=== PATIENT | male | born 1940 | race Caucasian/White ===

== ENCOUNTER → 2024-03-02 14:15 | Outpatient (REF) | payer MEDICARE, OTHER, SELFPAY | LOC: RCS 14:15 | PROVIDERS: ATTENDING PHYSICIAN Internal Medicine Cardiovascular Disease; FAMILY PHYSICIAN Family Medicine | DX: I10 Essential (primary) hypertension (principal); I35.1 Nonrheumatic aortic (valve) insufficiency; E78.00 Pure hypercholesterolemia, unspecified; E78.2 Mixed hyperlipidemia; I51.7 Cardiomegaly | CPT/HCPCS: 93306 ==

== ENCOUNTER 2025-02-19 19:32 | Inpatient (IN) | payer MEDICARE, OTHER, SELFPAY ==
[2025-02-19] VITALS (17 sets, daily range): BP systolic 130–159; BP diastolic 56–87; BMI 26.3
[2025-02-19 15:19] LABS: % Basophils 0.2 % (0-2); % Eosinophils 0.5 % (0-6); % Immature Granulocytes 0.5 % (0-0.5); % Lymphocytes 14.1 % (20.5-51.1); % Monocytes 9.5 % (1.7-9.3); % Neutrophils 75.2 % (42.2-75.2); Absolute Lymphocytes 0.6 10^3/uL (1.2-3.4); Absolute Monocytes 0.4 10^3/uL (0.1-0.6); Absolute Neutrophils 3.2 10^3/uL (1.4-6.5); Hematocrit 15.2 % (39.0-52.0); Hemoglobin 4.1 g/dL (13.0-18.0); Mean Corpuscular Hgb 18.3 pg (27.0-31.0); Mean Corpuscular Volume 67.9 fL (80.0-94.0); Mean Platelet Volume 10.8 fL (7.4-10.4); Nucleated Red Blood Cells % 0 % (-); Platelet Count 163 10^3/uL (130-400); Red Blood Cell Count 2.24 10^6/uL (4.70-6.10); Red Cell Dist. Width 18.4 % (11.5-14.5); White Blood Cell Count 4.2 10^3/uL (4.8-10.8)
[2025-02-19 15:38] LABS: ALT (SGPT) 20 U/L (0-50); AST (SGOT) 17 U/L (17-59); Albumin 4.1 g/dl (3.5-5.0); Alkaline Phosphatase 42 U/L (38-126); Blood Urea Nitrogen 38 mg/dl (9-20); Calcium 9.3 mg/dl (8.4-10.2); Carbon Dioxide 21 mmol/L (22-30); Chloride 113 mmol/L (98-107); Glucose 110 mg/dl (70-99); Potassium 4.4 mmol/L (3.5-5.1); Sodium 142 mmol/L (135-145); Total Bilirubin 1.1 mg/dl (0.2-1.3); Total Protein 6.1 g/dl (6.3-8.2); eGFR 45.91
[2025-02-19 16:34] LABS: Anisocytosis 1+; Hypochromasia 2+; Microcytosis 2+; Normal RBC Morphology No; Ovalocytes 1+; Schistocytes 1+
--- NOTE | 2025-02-19 17:17 | ED.GENMED ---
History of Present Illness
General
Chief Complaint: Male Genito-Urinary Symptoms
Source: patient and spouse
Exam Limitations: none
Time Seen by Provider: 02/19/25 15:44
Nursing documentation reviewed up to this point in time: agreed with
History of Present Illness
History of Present Illness:
The patient is an 84-year-old male with a history of bladder cancer, not actively treated for the past three years, presenting with a week-long history of hematuria characterized by a red coloration of urine and blood clots. The patient reports
associated symptoms of fatigue and weakness. There is no reported pain. Hemoglobin levels are critically low at 4.1 g/dL, significantly below the normal range (~12 g/dL), indicating possible significant blood loss.
Past History
Past History
ED Past Medical History: HTN, Hypercholesterolemia and Other (Retention hypercholesterolemia, hemorrhoidectomy, pyloric stenosis)
ED Past Surgical History: None
Social History
Tobacco: Former smoker
Alcohol: Occasional
Drug: None
Personal:
Living: with family
Family History
Family History: Other (Other with diverticular disease)
Review of Systems
Review of Systems
Allergies reviewed?: Yes
All Other Systems: ROS reviewed and negative except as documented in HPI and ROS
Phy Exam
Physical Exam
Physical Exam:
GENERAL: Alert , in no apparent distress
EYE: pupils equal and reactive
NECK: Supple, no significant adenopathy.
ENT: o/p clr, mmm.
CARDIAC: Regular rate and rhythm .
LUNGS: Clear breath sounds bilaterally, no acute respiratory distress, no wheezes/rales/rhonchi
ABDOMEN: Soft, without focal tenderness, no r/g, no cvat
NEUROLOGICAL: Alert and oriented, no focal neuro deficits
SKIN: Warm and dry, skin intact.
MUSCULOSKELETAL: No edema, well perfused.
PSYCH: Normal and appropriate interaction.
Course
Orders/Labs/Results
Orders:
Orders
02/19/25 14:59
Type+Screen Urgent
Complete Blood Count/With Diff Urgent
Comprehensive Metabolic Panel Urgent
02/19/25 15:43
ABO2 Urgent
BBK Wristband Number:
Associate notified that ABO2 has been ordered: [id number]
Date: 02/19/25
Time: 15:09
Crime Victim Specialist ID: [id number]
02/19/25 15:53
* Blood Bank Products Urgent
Blood Bank Products: *Packed RBC Leuko(PRBC's)
Quantity: 2
Transfuse Today: Yes
Reason: Anemia
Abnormal Lab Results
02/19/25
14:59
WBC 4.2 L 10^3/uL
(4.8-10.8)
RBC 2.24 L 10^6/uL
(4.70-6.10)
Hgb 4.1 L* g/dL
(13.0-18.0)
Hct 15.2 L* %
(39.0-52.0)
MCV 67.9 L fL
(80.0-94.0)
MCH 18.3 L pg
(27.0-31.0)
MCHC 27.0 L g/dL
(33.0-37.0)
RDW 18.4 H %
(11.5-14.5)
MPV 10.8 H fL
(7.4-10.4)
Absolute Lymphs (auto) 0.6 L 10^3/uL
(1.2-3.4)
Lymphocytes % 14.1 L %
(20.5-51.1)
Monocytes % 9.5 H %
(1.7-9.3)
Chloride 113 H mmol/L
(98-107)
Carbon Dioxide 21 L mmol/L
(22-30)
BUN 38 H mg/dl
(9-20)
Creatinine 1.5 H mg/dL
(0.7-1.3)
Glucose 110 H mg/dl
(70-99)
Total Protein 6.1 L g/dl
(6.3-8.2)
Crossmatch IS Only See Detail
02/19/25 14:59
02/19/25 14:59
Vital Signs
Initial and Last Documented VS:
Initial Vital Signs
Temp Pulse Resp BP Pulse Ox
98.4 F 72 16 130/56 99
02/19/25 14:51 02/19/25 14:51 02/19/25 14:51 02/19/25 14:51 02/19/25 14:51
Last Documented Vital Signs
Temp Pulse Resp BP Pulse Ox
98.2 F 77 16 155/64 99
02/19/25 16:45 02/19/25 17:00 02/19/25 17:00 02/19/25 17:00 02/19/25 16:45
MDM/Problems Addressed
MDM/Problems Addressed:
The patient will be admitted to the hospital for transfusion of multiple units of blood and monitoring. Urology consultation is necessary to determine the source of bleeding. Consent for blood transfusion will be obtained from the patient.
Additional intravenous fluid administration is planned to increase blood volume.
*Pulse Oximetry
SaO2: 99
Oxygen Mode of Delivery: Room air
*Critical Care Note
Total Time (30-74mins, 75-104mins- exclusive of procedures): Not Applicable
ED Attending Note
-
Portions of this chart may have been created with voice recognition software.� Occasional wrong word or��sound alike� substitutions may have occurred due to the inherent limitations of voice recognition software.
Discharge Plan
Departure
Patient Disposition: Admit
Date of Disposition: 02/19/25
Time of Disposition: 17:18
Admit to: Telemetry
Admit to doctor: Ravin
Presentation/result/management discussed w/ accepting MD/DO: Hospitalist
Patient with high blood pressure during this ER visit?: No
Condition: Good
Covid-19: Not Applicable
Discharge Problem:
Anemia, Hematuria
Prescriptions:
No Action
mirtazapine 15 MG tablet
15 mg PO HS
3-In-1 Carb Control
2 cap PO BID
aspirin 81 MG tablet,delayed release (DR/EC)
81 mg PO HS
irbesartan 300 MG tablet
300 mg PO HS
rosuvastatin 10 MG tablet
10 mg PO HS
krill pur-xmpax-6-dha-epa 1 EACH capsule
1 cap PO QPM
Theragen Tablet
1 tab PO BID
amlodipine 2.5 mg Tablet
2.5 mg PO HS
acetaminophen [Tylenol Extra Strength] 500 mg Tablet
1,000 mg PO DAILYPRN PRN (Reason: mild pain)
temazepam 7.5 mg Capsule
7.5 mg PO HS
citalopram 20 mg Tablet
20 mg PO DAILY
acetylcysteine [NAC] 600 mg Capsule
600 mg PO DAILY
cholecalciferol (vitamin D3) 125 mcg (5,000 unit) Tablet
125 mcg PO QPM
melatonin 10 mg Tablet
10 mg PO HS
turmeric 400 mg Capsule
400 mg PO DAILY
Glucosamine Chondroitin
1 cap PO QPM
taurine
1 cap PO DAILY
Referrals:
Samuel Purdy MD [Family Provider, Family Practice]
Interventions
Interventions:
*Risk Screen - Suicide Last Done: 02/19/25 14:51
*General Assessment Last Done: 02/19/25 15:46
*Neglect/Abuse Screening Last Done: 02/19/25 14:51
*ED COVID-19 Vaccine History Last Done: 02/19/25 15:46
ED-Male Genitourinary Assessment Last Done: 02/19/25 15:48
Discharge Date and Time
Print Language: ARMENIAN
--- NOTE | 2025-02-19 18:09 | HPS.HSE ---
Family Physician
-
Family Physician: Samuel Purdy
Chief Complaint
-
Hematuria, weakness
History of Present Illness
84-year-old male with a past medical history of bladder cancer not treated for the last 3 years, chronic intermittent hematuria, BPH, pyloric stenosis, hypertension, and hyperlipidemia who presents with a 3-week history of hematuria,
lightheadedness, dizziness, and weakness. Patient reports that his hematuria has worsened in the last week, and his told him to come to the emergency room. He has been voiding bright red blood with blood clots. He denies bladder pain or
bladder spasms. He denies shortness of breath. No nausea, no vomiting. No chest pain. No black or bloody stools.
Medical History
Past Medical History
Past Medical History: Reports Other
Additional Past Medical History:
Bladder cancer
Bladder stones
Chronic hematuria
Benign prostatic hypertrophy
Pyloric stenosis
Essential hypertension
Hyperlipidemia
Insomnia
Anxiety
Past Surgical History: Reports Other
Additional Past Surgical History:
Hemorrhoidectomy
Complex laser cystolitholapaxy with stone extraction
Social History
Tobacco: Former Smoker
Alcohol: Occasional
Drug: None
Personal:
Living: With Family
Family History
Family History: Not pertinent
Allergies / Home Medications
Allergies reflects when Allergies were last updated in [facility].
Home Medications with original date entered in [facility]
Allergy/Medication List:
Allergies
Allergy/AdvReac Type Severity Reaction Status Date / Time
Penicillins Allergy Swelling Verified 07/20/22 02:25
Home Medications Table - record
�Medication �Instructions �Recorded �Confirmed
mirtazapine 15 mg tablet 15 mg PO HS 01/25/15 02/19/25
3-In-1 Carb Control 2 cap PO BID 12/28/19 02/19/25
aspirin 81 mg tablet,delayed 81 mg PO HS 12/28/19 02/19/25
release
irbesartan 300 mg tablet 300 mg PO HS 12/28/19 02/19/25
krill jro-cizqi-2-dha-epa 300 1 cap PO QPM 12/28/19 02/19/25
mg-90 mg (27 mg-45 mg) capsule
rosuvastatin 10 mg tablet 10 mg PO HS 12/28/19 02/19/25
Glucosamine Chondroitin 1 cap PO QPM 02/19/25 02/19/25
acetaminophen 500 mg tablet 1,000 mg PO DAILYPRN PRN mild pain 02/19/25 02/19/25
(Tylenol Extra Strength)
acetylcysteine 600 mg capsule (NAC) 600 mg PO DAILY 02/19/25 02/19/25
amlodipine 2.5 mg tablet 2.5 mg PO HS 02/19/25 02/19/25
cholecalciferol (vitamin D3) 125 125 mcg PO QPM 02/19/25 02/19/25
mcg (5,000 unit) tablet
citalopram 20 mg tablet 20 mg PO DAILY 02/19/25 02/19/25
melatonin 10 mg tablet 10 mg PO HS 02/19/25 02/19/25
taurine 1 cap PO DAILY 02/19/25 02/19/25
temazepam 7.5 mg capsule 7.5 mg PO HS 02/19/25 02/19/25
therapeutic multivitamin 1 tab PO BID 02/19/25 02/19/25
turmeric 400 mg capsule 400 mg PO DAILY 02/19/25 02/19/25
Review of Systems
-
A 12 point ROS was completed and negative except as noted: Yes
Physical Exam
Vital Signs
Vital Signs
Temp Pulse Resp BP Pulse Ox
98.5 F 64 15 149/61 100
02/19/25 18:08 02/19/25 18:08 02/19/25 18:08 02/19/25 18:08 02/19/25 18:08
Physical Exam
General: No Apparent Distress and Other (Pale appearing)
HEENT: NormoCephalic, Anicteric and Moist mucous membranes
Respiratory: Clear
Cardiac: S1/S2 and Regular Rhythm
GI: Soft, Non Tender, Non Distended and Normal Bowel Sounds
Musculoskeletal: No Clubbing, No Cyanosis and No Edema
Skin: Warm, Dry and Other (pale)
Neuro: Awake, Alert and Oriented
Psych: Calm
Laboratory Results
-
02/19/25 14:59
02/19/25 14:59
Laboratory Results
Total Bilirubin 1.1 mg/dl (0.2-1.3) 02/19/25 14:59
AST 17 U/L (17-59) 02/19/25 14:59
ALT 20 U/L (0-50) 02/19/25 14:59
Alkaline Phosphatase 42 U/L (38-126) 02/19/25 14:59
Impression/Plan
-
HPI: 84-year-old male with a past medical history of bladder cancer not treated for the last 3 years, chronic intermittent hematuria, BPH, pyloric stenosis, hypertension, and hyperlipidemia who presents with a 3-week history of hematuria,
lightheadedness, dizziness, and weakness. Patient reports that his hematuria has worsened in the last week, and his told him to come to the emergency room. He has been voiding bright red blood with blood clots. He denies bladder pain or
bladder spasms. He denies shortness of breath. No nausea, no vomiting. No chest pain. No black or bloody stools.
#Bladder cancer not currently on treatment
#Acute on chronic hematuria
Consult urology, insert Armendariz, likely will need CBI
Check CT abdomen and pelvis with IV contrast
#Acute blood loss anemia
#Symptomatic anemia
Hemoglobin 4.3 today, 2 units of packed red blood cells have been ordered
Will order third unit
Trend hemoglobin
#Essential hypertension
Continue amlodipine, irbesartan
#Hyperlipidemia
Continue statin
#Insomnia
#Anxiety
Continue mirtazapine, temazepam, citalopram, melatonin
DVT prophylaxis�SCD secondary to hematuria
Full code
Total time spent to see the patient on the floor, examine the patient, review data and lab results, discuss treatment plan with patient, nursing staff around 70 minutes.
--- NOTE | 2025-02-19 18:58 | W.PN.URO.CBU ---
Today's Communication / Plan
-
start [address] and upon ibserttin try and clear any clots once free of clots then run cbi
Assessment / Plan
-
hematuria anemia of acute blood loss likely bladder cancer need to resuscitate for anemia then cbi to clear clots then ct scan and pending results of ct scan try and treat underling disease probably bladder cancer
Diagnosis
-
Date of Service: February 19, 2025
-
Patient Diagnosis:h.o bladder cancer now 3 weeks gross hematuria painless hgb 4
Post Op Day:
Subjective
-
weak feels like bladder emtied urine pink
Objective
-
Vital Signs
Temp Pulse Resp BP Pulse Ox
98.3 F 64 19 159/71 99
02/19/25 18:24 02/19/25 18:24 02/19/25 18:24 02/19/25 18:24 02/19/25 18:24
Intake and Output
02/18/25 02/19/25 02/20/25
06:59 06:59 06:59
Intake Total 250 / 250
Balance 250 / 250
Intake:
Blood Product Amount Infused ( 250 / 250
mL)
Packed Rbc Leukoreduced Unit 250 / 250
[id number]
Packed Rbc Leukoreduced Unit 0 / 0
[id number]
Laboratory Results
02/19/25 14:59
02/19/25 14:59
Review of Systems
-
Constitutional: Fatigue
: Bleeding and Dark Urine
Physical Exam
-
General - well developed, well nourished, no acute distress
Chest - clear bilaterally
Abdomen - soft, non-tender, positive bowel sounds, no CVAT, no incisional pain or distention
Genitalia - normal
Rectal - normal
Skin - warm & dry with no rash
Neuro - AOx3, no motor deficits
Extremities - no clubbing, no cyanosis, no edema
Incision - clean, dry
Dressing - clean, dry, intact
Counseling
-
cbi hand irigate transfuse
Care Review
Data Reviewed
Discussed with: Hospitalist and Nursing
[2025-02-19] MEDS: NORVASC 2.5 MG PO (21:44)
[2025-02-19] MEDS: AVAPRO 300 MG PO (21:44)
[2025-02-19] MEDS: CRESTOR 10 MG PO (21:44)
[2025-02-19] MEDS: REMERON 15 MG PO (21:45)
[2025-02-19] MEDS: MELATONIN 10 MG PO (21:48)
[2025-02-19] MEDS: RESTORIL 7.5 MG PO (23:20)
[2025-02-20] VITALS (7 sets, daily range): BP systolic 125–148; BP diastolic 53–70
[2025-02-20 03:13] LABS: Hematocrit 23.4 % (39.0-52.0); Mean Corp Hgb Conc. 29.9 g/dL (33.0-37.0); Mean Corpuscular Hgb 21.9 pg (27.0-31.0); Mean Corpuscular Volume 73.4 fL (80.0-94.0); Mean Platelet Volume 10.9 fL (7.4-10.4); Platelet Count 143 10^3/uL (130-400); Red Blood Cell Count 3.19 10^6/uL (4.70-6.10); Red Cell Dist. Width 22.1 % (11.5-14.5); White Blood Cell Count 5.5 10^3/uL (4.8-10.8)
[2025-02-20 03:38] LABS: Blood Urea Nitrogen 34 mg/dl (9-20); Calcium 8.7 mg/dl (8.4-10.2); Carbon Dioxide 21 mmol/L (22-30); Chloride 113 mmol/L (98-107); Estimated Creatinine Clearance 31 ml/min; Glucose 127 mg/dl (70-99); Magnesium 2.3 mg/dl (1.6-2.3); Potassium 4.5 mmol/L (3.5-5.1); Sodium 141 mmol/L (135-145); eGFR 45.91
[2025-02-20 06:27] LABS: Hematocrit 22.2 % (39.0-52.0)
--- NOTE | 2025-02-20 07:00 | W.PN.HOSP.TC ---
Today's Communication/Plan
-
transfuse 1PRBC for goal Hgb 8
npo after midnight for OR tomorrow with Urology
IVF hydration when NPO
cont Armendariz CBI as per Urology
Assessment / Plan
Assessment / Plan
Physical Exam
General: No Apparent Distress, appears comfortable at this time
HEENT: NormoCephalic, Anicteric and Moist mucous membranes
Respiratory: Clear
Cardiac: S1/S2 and Regular Rhythm
GI: Soft, Non Tender, Non Distended and Normal Bowel Sounds
Musculoskeletal: No Clubbing, No Cyanosis and No Edema
Skin: Warm, Dry
Neuro: AOx3 conversant coherent
Psych: Calm
84M hx bladder cancer, chronic intermittent hematuria, BPH, pyloric stenosis, hypertension, and hyperlipidemia who presents with a 3 wk hx hematuria, lightheadedness, dizziness, and weakness. Patient reported his hematuria worsened in the last
week, and his told him to come to the emergency room. He has been voiding bright red blood with blood clots. He denied bladder pain or bladder spasms. He denied shortness of breath. No nausea, no vomiting. No chest pain. No black or
bloody stools.
#Bladder cancer not currently on treatment
#Acute on chronic hematuria
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
Consult urology appreciated, Armendariz inserted and CBI continued, planned for OR tomorrow
Cardiology pre-op risk assessment appreciated, low intermediate risk not prohibitive, ok to proceed to OR tomorrow
EKG appreciated NSR RBBB possible inferior infarct age indeterminate, patient chest pain free
#Acute blood loss anemia
#Symptomatic anemia
Hemoglobin 4.3 responded well to 3 units PRBC w/ subsequent repeat Hgb 7.0
4th unit ordered today 02/20
transfusing for goal 8 given concerns active bleeding and plan for OR tomorrow
#Essential hypertension
Continue amlodipine, irbesartan
#Hyperlipidemia
Continue statin
#Insomnia
#Anxiety
Continue mirtazapine, temazepam, citalopram, melatonin
DVT prophylaxis�SCD secondary to hematuria
Full code
I spent a total of 45 minutes with the patient or on the floor. More than 50% of this time involved counseling and coordination of care.
Anticipated Discharge: > 48 hours
Subjective/Interval History
-
Date of Service: February 20, 2025
No acute distress resting comfortably in bed. Overall reports feeling well. Denies new acute issues at this time including pain. on cbi with light punch colored urine in Armendariz.
Objective Data
-
Labs:
Laboratory Results
02/20/25 02/20/25 02/20/25
03:03 03:03 03:03
WBC 5.5
Hgb 7.0 L D Cancelled
Hct 23.4 L Cancelled
Plt Count 143
Sodium 141
Potassium 4.5
Chloride 113 H
Carbon Dioxide 21 L
BUN 34 H
Creatinine 1.5 H
Glucose 127 H
Calcium 8.7
02/20/25
06:19
WBC
Hgb 7.0 L
Hct 22.2 L
Plt Count
Sodium
Potassium
Chloride
Carbon Dioxide
BUN
Creatinine
Glucose
Calcium
Vital Signs:
Vital Signs
Temp Pulse Resp BP Pulse Ox
98.0 F 64 16 147/64 99
02/20/25 03:23 02/20/25 03:23 02/20/25 03:23 02/20/25 03:23 02/20/25 03:23
I&O
02/19/25 02/20/25 02/21/25
06:59 06:59 06:59
Intake Total 990 / 990
Output Total 1150 / 1150
Balance -160 / -160
[2025-02-20] MEDS: CELEXA 20 MG PO (08:43)
--- NOTE | 2025-02-20 11:45 | W.PN.URO.CBU ---
Today's Communication / Plan
-
for op room sun am
Assessment / Plan
-
hematuria anemia of acute blood loss likely bladder cancer need to resuscitate for anemia then cbi to clear clots then ct scan and pending results of ct scan try and treat underling disease probably bladder cancer for op room if stable saturday
aware lg volime tumor and may require more than 1 procerdure
Diagnosis
-
Date of Service: February 20, 2025
-
Patient Diagnosis:
Post Op Day:
Patient Diagnosis:h.o bladder cancer now 3 weeks gross hematuria painless hgb 4 ct scan renveals multiple tumors
Post Op Day:
Subjective
-
ledss henaturi a feels stronger
Objective
-
Vital Signs
Temp Pulse Resp BP Pulse Ox
98 F 63 16 146/65 98
02/20/25 07:43 02/20/25 07:43 02/20/25 07:43 02/20/25 07:43 02/20/25 07:43
Intake and Output
02/19/25 02/20/25 02/21/25
06:59 06:59 06:59
Intake Total 990 / 990
Output Total 1150 / 1150
Balance -160 / -160
Intake:
Oral fluids 240 / 240
Blood Product Amount Infused ( 750 / 750
mL)
Packed Rbc Leukoreduced Unit 250 / 250
[id number]
Packed Rbc Leukoreduced Unit 250 / 250
[id number]
Packed Rbc Leukoreduced Unit 250 / 250
[id number]
Output:
True Urine Output from CBI 1150 / 1150
Laboratory Results
02/20/25 03:03
Review of Systems
-
: Bleeding
Physical Exam
-
General - well developed, well nourished, no acute distress
Chest - clear bilaterally
Abdomen - soft, non-tender, positive bowel sounds, no CVAT, no incisional pain or distention
Genitalia - normal
Rectal - normal
Skin - warm & dry with no rash
Neuro - AOx3, no motor deficits
Extremities - no clubbing, no cyanosis, no edema
Incision - clean, dry
Dressing - clean, dry, intact
Care Review
Data Reviewed
Discussed with: Hospitalist and Nursing
CT Scan: Image Pers Reviewed
[2025-02-20 11:46] LABS: Hematocrit 22.7 % (39.0-52.0)
--- NOTE | 2025-02-20 12:46 | CON.CAR ---
Consultation
Consultation Request
Date/Time Consultation Requested: February 20 2025 12:30 pm
Date/Time Consultation Performed: February 20 2025 2:00 pm
Requesting Provider: hospitalist
Performing Provider: Primo Caballero
Reason for Consultation: preop risk stratification
Medical History
-
Chief Complaint: Blood in urine
History of Present Illness:
84-year-old male with past medical history of hyperlipidemia, hypertension, bladder cancer, nephrolithiasis, hematuria who presented with symptomatic anemia secondary to hematuria. He tells me that over the last week or so he had becoming more more
symptomatic with shortness of breath and weakness. He also had more persistent hematuria. When he presented to the emergency room his hemoglobin was 4. Otherwise, from a cardiovascular standpoint besides for the symptomatic anemia he has no other
symptoms of ischemia, heart failure, or arrhythmia. He had an echocardiogram about a year ago which did not show any significant valve disease and a normal ejection fraction. He is easily able to exert himself to greater than 4 METS. Overall, we
discussed how he was low to him intermediate risk for this upcoming bladder procedure.
Past Medical History
Past Medical History: Other (Bladder cancer Bladder stones Chronic hematuria Benign prostatic hypertrophy Pyloric stenosis Essential hypertension Hyperlipidemia Insomnia Anxiety hypertension)
Past Surgical History: Other (Hemorrhoidectomy Complex laser cystolitholapaxy with stone extraction)
Social History
Tobacco: Former Smoker
Alcohol: Occasional
Drug: None
Personal:
Living: With Family
Employment: Employed
Family History
Family History: Reviewed & Not Pertinent
Allergies / Home Medications
Allergy/AdvReac Type Severity Reaction Status Date / Time
Penicillins Allergy Swelling Verified 07/20/22 02:25
�Medication �Instructions �Recorded �Confirmed �Type
mirtazapine 15 mg tablet 15 mg PO HS 01/25/15 02/19/25 History
3-In-1 Carb Control 2 cap PO BID 12/28/19 02/19/25 History
aspirin 81 mg tablet,delayed 81 mg PO HS 12/28/19 02/19/25 History
release
irbesartan 300 mg tablet 300 mg PO HS 12/28/19 02/19/25 History
krill qck-ggkez-3-dha-epa 300 1 cap PO QPM 12/28/19 02/19/25 History
mg-90 mg (27 mg-45 mg) capsule
rosuvastatin 10 mg tablet 10 mg PO HS 12/28/19 02/19/25 History
Glucosamine Chondroitin 1 cap PO QPM 02/19/25 02/19/25 History
acetaminophen 500 mg tablet 1,000 mg PO DAILYPRN PRN mild pain 02/19/25 02/19/25 History
(Tylenol Extra Strength)
acetylcysteine 600 mg capsule (NAC) 600 mg PO DAILY 02/19/25 02/19/25 History
amlodipine 2.5 mg tablet 2.5 mg PO HS 02/19/25 02/19/25 History
cholecalciferol (vitamin D3) 125 125 mcg PO QPM 02/19/25 02/19/25 History
mcg (5,000 unit) tablet
citalopram 20 mg tablet 20 mg PO DAILY 02/19/25 02/19/25 History
melatonin 10 mg tablet 10 mg PO HS 02/19/25 02/19/25 History
taurine 1 cap PO DAILY 02/19/25 02/19/25 History
temazepam 7.5 mg capsule 7.5 mg PO HS 02/19/25 02/19/25 History
therapeutic multivitamin 1 tab PO BID 02/19/25 02/19/25 History
turmeric 400 mg capsule 400 mg PO DAILY 02/19/25 02/19/25 History
Review of Systems
-
All other systems: Negative unless noted
Physical Exam
Vital Signs
Temp Pulse Resp BP Pulse Ox
98 F 63 16 146/65 98
02/20/25 07:43 02/20/25 07:43 02/20/25 07:43 02/20/25 07:43 02/20/25 07:43
Lab Results
02/20/25 11:32
02/20/25 03:03
Physical Exam
General: Well Developed, Well Nourished and No Apparent Distress
HEENT: Normocephalic
Respiratory: Clear and Non Labored Respirations
Cardiac: S1/S2 and Regular Rhythm
GI: Soft
Musculoskeletal: No Clubbing, No Cyanosis and No Edema
Skin: Warm and Dry
Neuro: AO x 3
Psych: Calm
Impression / Plan
-
A/P: 84-year-old male with past medical history of hyperlipidemia, hypertension, bladder cancer, nephrolithiasis, hematuria who presented with symptomatic anemia secondary to hematuria. We are consulted for preop cardiovascular exam.
Preop cardiovascular risk assessment
- Patient has no cardiovascular limiting symptoms and is easily able to exert himself to greater than 4 METS. He is low to intermediate risk for his upcoming urologic procedure tomorrow. He needs no further testing or medications. I did put in
for an EKG as he has not gotten one this hospitalization. Otherwise, he needs no further testing.
hematuria likely secondary to bladder cancer
- Per urology OR for tomorrow
Hyperlipidemia
- Continue statin
Hypertension
- Continue home meds
Mild AI
Data Reviewed
-
EKG: Tracing Personally Visualized and interpreted (sr)
Medical Tests (Nuc Med, Echo etc): Image Personally Visualized and interpreted
Labs: Labs Reviewed by me
--- NOTE | 2025-02-20 13:38 | CM ---
Patient seen bedside, initial assessment completed. Patient is a 84-year-old male with a past medical history of bladder cancer not treated for the last 3 years, chronic intermittent hematuria, BPH, pyloric stenosis, hypertension, and hyperlipidemia
who presents with a 3-week history of hematuria, lightheadedness, dizziness, and weakness.
Patient resides w/ spouse in a 2S, 3 steps to enter. Independent w/ amb and ADLs, no DME. No SNF/HC hx reported.
Address, points of contact and insurance verified
PCP: Samuel Purdy
Pharmacy: [facility]
Plan: CM will cont to follow for d/c planning
[2025-02-20] MEDS: VITAMIN D3 (cholecalciferol) 125 MCG PO (18:30)
[2025-02-20] MEDS: THERAGRAN 1 TABLET PO (20:18)
[2025-02-20 20:26] LABS: Hematocrit 25.3 % (39.0-52.0)
[2025-02-20] MEDS: RESTORIL 7.5 MG PO (21:00)
[2025-02-20] MEDS: NORVASC 2.5 MG PO (21:00)
[2025-02-20] MEDS: CRESTOR 10 MG PO (21:00)
[2025-02-20] MEDS: REMERON 15 MG PO (21:00)
[2025-02-20] MEDS: MELATONIN 10 MG PO (21:00)
[2025-02-20] MEDS: AVAPRO 300 MG PO (22:10)
[2025-02-20] MEDS: NSS 1000 IV (23:50)
[2025-02-21] VITALS (13 sets, daily range): BP systolic 109–142; BP diastolic 53–69
--- NOTE | 2025-02-21 07:03 | W.PN.HOSP.TC ---
Today's Communication/Plan
-
monitor H&H, transfusion goal 8
cont IVF, ok to dc if tolerating diet/exhibiting good oral intake
pain control
cont Armendariz CBI as per urology
Assessment / Plan
Assessment / Plan
Physical Exam
General: No Apparent Distress, appears comfortable at this time
HEENT: NormoCephalic, Anicteric and Moist mucous membranes
Respiratory: Clear
Cardiac: S1/S2 and Regular Rhythm
GI: Soft, Non Tender, Non Distended and Normal Bowel Sounds
: Armendariz CBI in placed, punch colored urine
Musculoskeletal: No Clubbing, No Cyanosis and No Edema
Skin: Warm, Dry
Neuro: Lethargic but arousable and oriented x3 conversant coherent
Psych: Calm
84M hx bladder cancer, chronic intermittent hematuria, BPH, pyloric stenosis, hypertension, and hyperlipidemia who presents with a 3 wk hx hematuria, lightheadedness, dizziness, and weakness. Patient reported his hematuria worsened in the last
week, and his told him to come to the emergency room. He has been voiding bright red blood with blood clots. He denied bladder pain or bladder spasms. He denied shortness of breath. No nausea, no vomiting. No chest pain. No black or
bloody stools.
#Bladder cancer not currently on treatment
#Acute on chronic hematuria
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
Cardiology pre-op risk assessment appreciated, low intermediate risk not prohibitive
EKG appreciated NSR RBBB possible inferior infarct age indeterminate, patient chest pain free
Consult urology appreciated, Armendariz inserted and CBI continued, underwent TURBT and Clot evacuation 02/21/25 received prophylactic IV Levofloxacin
IVF support while npo for procedure, cont IVF support for now, ok to dc if tolerating diet/exhibiting good oral intake
cont hold home ASA as per Urology
#Acute blood loss anemia
#Symptomatic anemia
#possible mild ADAM vs CKD III
Hemoglobin 4.3 responded well to 3 units PRBC w/ subsequent repeat Hgb 7.0
transfused 4th unit 02/20 for goal 8 given concerns active bleeding and plans for OR
Remains at goal post-procedure, cont monitor H&H with transfusion goal 8 as above.
Initial Cr 1.5 since trended down to 1.3, cont to monitor renal function
#Essential hypertension
Continue amlodipine, irbesartan
#Hyperlipidemia
Continue statin
#Insomnia
#Anxiety
Continue mirtazapine, temazepam, citalopram, melatonin
DVT prophylaxis�SCD
Full code
discussed with patient and patient's Tamera
I spent a total of 45 minutes with the patient or on the floor. More than 50% of this time involved counseling and coordination of care.
Anticipated Discharge: 24 - 48 hours
Subjective/Interval History
-
Date of Service: February 21, 2025
No acute distress, resting comfortably in bed, reports overall feeling well, no significant pain post-procedure with urology
Objective Data
-
Labs:
Laboratory Results
02/20/25 02/21/25
20: 06:00
WBC Pending
Hgb 8.0 L Pending
Hct 25.3 L Pending
Plt Count Pending
Sodium Pending
Potassium Pending
Chloride Pending
Carbon Dioxide Pending
BUN Pending
Creatinine Pending
Glucose Pending
Calcium Pending
Vital Signs:
Vital Signs
Temp Pulse Resp BP Pulse Ox
98.1 F 66 16 125/53 95
02/20/25 23:04 02/20/25 23:04 02/20/25 23:04 02/20/25 23:04 02/20/25 23:04
I&O
02/20/25 02/21/25 02/22/25
06:59 06:59 06:59
Intake Total 990 / 990 850 / 850
Output Total 1150 / 1150 3900 / 3900
Balance -160 / -160 -3050 / -3050
[2025-02-21 08:12] LABS: Hematocrit 26.3 % (39.0-52.0); Hemoglobin 8.1 g/dL (13.0-18.0); Mean Corp Hgb Conc. 30.8 g/dL (33.0-37.0); Mean Corpuscular Hgb 22.9 pg (27.0-31.0); Mean Corpuscular Volume 74.3 fL (80.0-94.0); Platelet Count 141 10^3/uL (130-400); Red Blood Cell Count 3.54 10^6/uL (4.70-6.10); Red Cell Dist. Width 21.5 % (11.5-14.5); White Blood Cell Count 6.4 10^3/uL (4.8-10.8)
[2025-02-21 08:16] LABS: Blood Urea Nitrogen 23 mg/dl (9-20); Calcium 8.6 mg/dl (8.4-10.2); Carbon Dioxide 20 mmol/L (22-30); Chloride 115 mmol/L (98-107); Estimated Creatinine Clearance 36 ml/min; Glucose 97 mg/dl (70-99); Phosphorus 3.5 mg/dl (2.5-4.5); Potassium 3.8 mmol/L (3.5-5.1); Sodium 141 mmol/L (135-145); eGFR 54.51
--- NOTE | 2025-02-21 10:30 | W.SUR.POST ---
Surgical Immediate Post Op
Note
Pre Op Diagnosis: hematuria acute anemia of blood loss h/ bladder cancer
Post Op Diagnosis: bladder cancer clot retention
Procedure Performedturbt 10 cm with evacuation of clot:
Primary Surgeon: trey
Secondary Surgeons:
Anesthesia: dr woods [facility]
Estimated Blood Loss: 35cc
Fluids: nn
Drains/Shunts: [address] balloon
Specimens/Cultures:
Doppler/Duplex/Angio (Y/N):
Complications: -0
Operative Findings:
muliple lg tumors inclding at bladder neck / prostate clot retention
[2025-02-21] MEDS: ZOFRAN 4 MG IV (10:39)
[2025-02-21 12:53] LABS: Glucose - Point of Care 190 mg/dl (70-99)
--- NOTE | 2025-02-21 12:58 | PTCARENOTE ---
The patient complain light headache, CBI intact and patent with bloody urine, Dr. Sommer at bedside, stat H&H was dori, VSS monitored, BS is 190 .Waiting for result at this time.
[2025-02-21] MEDS: CELEXA PO (13:00)
[2025-02-21] MEDS: THERAGRAN PO (13:01)
[2025-02-21] MEDS: NSS 1000 IV (13:01)
[2025-02-21 13:05] LABS: Hematocrit 25.9 % (39.0-52.0); Hemoglobin 8.2 g/dL (13.0-18.0)
[2025-02-21] MEDS: TRANEXAMIC ACID 100 IV (13:11)
[2025-02-21] MEDS: VITAMIN D3 (cholecalciferol) PO (16:56)
[2025-02-21] MEDS: MIRALAX 17 GRAMS PO (20:09)
[2025-02-21] MEDS: THERAGRAN 1 TABLET PO (20:09)
[2025-02-21 20:34] LABS: Hematocrit 25.7 % (39.0-52.0); Hemoglobin 7.9 g/dL (13.0-18.0)
--- NOTE | 2025-02-21 21:30 | PTCARENOTE ---
Pt's Hgb result from 1999 was 7.9; goal of hgb > 8. Dr. Burk called for update, this RN notified him of hgb result and that pt's urine is still bloody but no clots have been noted in his catheter tonight. OTBIAS Hammond notified of hgb result and
ordered 1 unit PRBCs which were transfused by this RN. No adverse reaction to blood transfusion noted, VSS throughout transfusion. Hgb due to be rechecked at 0600 this AM.
[2025-02-21] MEDS: RESTORIL 7.5 MG PO (22:36)
[2025-02-21] MEDS: CRESTOR 10 MG PO (22:36)
[2025-02-21] MEDS: MELATONIN 10 MG PO (22:36)
[2025-02-21] MEDS: AVAPRO 300 MG PO (22:36)
[2025-02-21] MEDS: NORVASC 2.5 MG PO (22:37)
[2025-02-21] MEDS: REMERON 15 MG PO (22:37)
[2025-02-22] VITALS (10 sets, daily range): BP systolic 112–159; BP diastolic 49–68
[2025-02-22] MEDS: NSS 1000 IV (03:57)
--- NOTE | 2025-02-22 07:26 | W.PN.HOSP.TC ---
Today's Communication/Plan
-
cont Armendariz CBI as per urology
transfusion goal Hgb 8
cont prophylactic abx
monitor H&H and renal function
Assessment / Plan
Assessment / Plan
Physical Exam
General: No Apparent Distress, appears comfortable at this time
HEENT: NormoCephalic, Anicteric and Moist mucous membranes
Respiratory: Clear
Cardiac: S1/S2 and Regular Rhythm
GI: Soft, Non Tender, Non Distended and Normal Bowel Sounds
: Armendariz CBI in placed, punch colored urine
Musculoskeletal: No Clubbing, No Cyanosis and No Edema
Skin: Warm, Dry
Neuro: AO x3 conversant coherent
Psych: Calm
84M hx bladder cancer, chronic intermittent hematuria, BPH, pyloric stenosis, hypertension, and hyperlipidemia who presents with a 3 wk hx hematuria, lightheadedness, dizziness, and weakness. Patient reported his hematuria worsened in the last
week, and his told him to come to the emergency room. He has been voiding bright red blood with blood clots. He denied bladder pain or bladder spasms. He denied shortness of breath. No nausea, no vomiting. No chest pain. No black or
bloody stools.
#Bladder cancer not currently on treatment
#Acute on chronic hematuria
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
Cardiology pre-op risk assessment appreciated, low intermediate risk not prohibitive
EKG appreciated NSR RBBB possible inferior infarct age indeterminate, patient chest pain free
Consult urology appreciated, Armendariz inserted and CBI continued, underwent TURBT and Clot evacuation 02/21/25 received prophylactic IV Levofloxacin
prophylactic abx continued w/ Keflex
IVF support while npo for procedure, cont IVF support for now, ok to dc if tolerating diet/exhibiting good oral intake
cont hold home ASA as per Urology
#Acute blood loss anemia
#Symptomatic anemia
#possible mild ADAM vs CKD III
received total 6U PRBC over the course of hospitalization for goal Hgb 8
Cr consistently 1.5, cont monitoring
#Hypocalcemia
likely side effect multiple transfusions
Vit D wnl
scheduled PO calcium supplementations started
monitor and replete calcium as necessary
#Essential hypertension
Continue amlodipine, irbesartan
#Hyperlipidemia
Continue statin
#Insomnia
#Anxiety
Continue mirtazapine, temazepam, citalopram, melatonin
DVT prophylaxis�SCD
Full code
I spent a total of 45 minutes with the patient or on the floor. More than 50% of this time involved counseling and coordination of care.
Anticipated Discharge: 24 - 48 hours
Subjective/Interval History
-
Date of Service: February 22, 2025
No acute distress, resting comfortably in bed. Overall reports feeling well. CBI continues with ostensible hematuria noted
Objective Data
-
Labs:
Laboratory Results
02/21/25 02/22/25 02/22/25
20:28 06:00 12:00
WBC Pending
Hgb 7.9 L Pending Pending
Hct 25.7 L Pending Pending
Plt Count Pending
Sodium Pending
Potassium Pending
Chloride Pending
Carbon Dioxide Pending
BUN Pending
Creatinine Pending
Glucose Pending
Calcium Pending
Vital Signs:
Vital Signs
Temp Pulse Resp BP Pulse Ox
98.2 F 76 16 127/65 95
02/22/25 02:49 02/22/25 02:49 02/22/25 02:49 02/22/25 02:49 02/22/25 02:49
I&O
02/21/25 02/22/25 02/23/25
06:59 06:59 06:59
Intake Total 850 / 850 1780 / 1780
Output Total 3900 / 3900 500 / 500 3600 / 3600
Balance -3050 / -3050 1280 / 1280 -3600 / -3600
[2025-02-22] MEDS: KEFLEX 500 MG PO ×2 (07:56→20:18)
[2025-02-22] MEDS: CELEXA 20 MG PO (07:56)
[2025-02-22] MEDS: THERAGRAN 1 TABLET PO ×2 (07:56→20:18)
[2025-02-22 08:05] LABS: Hematocrit 24.7 % (39.0-52.0); Hemoglobin 7.8 g/dL (13.0-18.0); Mean Corp Hgb Conc. 31.6 g/dL (33.0-37.0); Mean Corpuscular Hgb 24.2 pg (27.0-31.0); Mean Corpuscular Volume 76.7 fL (80.0-94.0); Platelet Count 134 10^3/uL (130-400); Red Blood Cell Count 3.22 10^6/uL (4.70-6.10); Red Cell Dist. Width 21.6 % (11.5-14.5); White Blood Cell Count 10.4 10^3/uL (4.8-10.8)
[2025-02-22 08:46] LABS: Blood Urea Nitrogen 25 mg/dl (9-20); Calcium 7.7 mg/dl (8.4-10.2); Carbon Dioxide 21 mmol/L (22-30); Chloride 113 mmol/L (98-107); Estimated Creatinine Clearance 31 ml/min; Glucose 109 mg/dl (70-99); Phosphorus 3.7 mg/dl (2.5-4.5); Potassium 4.2 mmol/L (3.5-5.1); Sodium 139 mmol/L (135-145); eGFR 45.91
--- NOTE | 2025-02-22 09:52 | PTCARENOTE ---
Assumed care of pt from previous nurse. Pt denies pain. Pt CBI running, irrigated x's one for pressure, clots evacuated, running without issue. Pt call knight is within reach, pt rings carole. will cont to monitor.
[2025-02-22] MEDS: CALCIUM GLUCONATE 100 IV (10:49)
[2025-02-22 11:29] LABS: Vitamin D, 25-OH*** 67.7 ng/mL (30-80)
[2025-02-22] MEDS: OSCAL CAL 500 500 MG PO ×2 (12:44→20:18)
--- NOTE | 2025-02-22 13:45 | CM ---
Chart reviewed and patient would benefit from PT/OT to assist with discharge planning needs. VN needs.
Plan; await updated progress notes on patient.
--- NOTE | 2025-02-22 16:37 | W.PN.URO.CBU ---
Today's Communication / Plan
-
continue present care teach t about fleming care and leg bag as awill go home with fleming
Assessment / Plan
-
hematuria anemia of acute blood loss likely bladder cancer s?p turbt await payth but sig slowed down bleeding pt yeny go home with fleming for nw no plan to go back to op ro for fulgeration unles rebleeds but so far hgb/ hct stabe x 48
hours but needs to keep cbi plan to kelly ff cbi in am and see how pt progresses
Diagnosis
-
Date of Service: February 22, 2025
-
Patient Diagnosis:anemia of acute blood loss due to bladder cancer
Post Op Day:
Patient Diagnosis:
Post Op Day:
Patient Diagnosis:h.o bladder cancer now 3 weeks gross hematuria painless hgb 4 ct scan renveals multiple tumors
Post Op Day:
Subjective
-
feeling better
Objective
-
Vital Signs
Temp Pulse Resp BP Pulse Ox
98.4 F 78 16 125/63 96
02/22/25 15:32 02/22/25 15:32 02/22/25 15:32 02/22/25 15:32 02/22/25 15:32
Intake and Output
02/21/25 02/22/25 02/23/25
06:59 06:59 06:59
Intake Total 850 / 850 1780 / 1780 670 / 670
Output Total 3900 / 3900 500 / 500 3600 / 3600
Balance -3050 / -3050 1280 / 1280 -2930 / -2930
Intake:
Oral fluids 600 / 600 480 / 480 420 / 420
IV fluids (Total) 800 / 800
Blood products 250 / 250
Blood Product Amount Infused ( 250 / 250 250 / 250 250 / 250
mL)
Packed Rbc Leukoreduced Unit 250 / 250
[id number]
Packed Rbc Leukoreduced Unit 250 / 250
[id number]
Packed Rbc Leukoreduced Unit 250 / 250
[id number]
Output:
True Urine Output from CBI 3900 / 3900 500 / 500 3600 / 3600
Laboratory Results
02/22/25 07:29
Review of Systems
-
: Bleeding
Physical Exam
-
General - well developed, well nourished, no acute distress
Chest - clear bilaterally
Abdomen - soft, non-tender, positive bowel sounds, no CVAT, no incisional pain or distention
Genitalia - normal
Rectal - normal
Skin - warm & dry with no rash
Neuro - AOx3, no motor deficits
Extremities - no clubbing, no cyanosis, no edema
Incision - clean, dry
Dressing - clean, dry, intact
Care Review
Data Reviewed
Discussed with: Hospitalist, Internal Medicine and Family
[2025-02-22] MEDS: MIRALAX 17 GRAMS PO (16:51)
[2025-02-22] MEDS: NSS IV (17:14)
[2025-02-22] MEDS: VITAMIN D3 (cholecalciferol) 125 MCG PO (17:33)
[2025-02-22 18:32] LABS: Hematocrit 29.6 % (39.0-52.0); Hemoglobin 9.5 g/dL (13.0-18.0)
[2025-02-22] MEDS: MELATONIN 10 MG PO (23:07)
[2025-02-22] MEDS: RESTORIL 7.5 MG PO (23:07)
[2025-02-22] MEDS: REMERON 15 MG PO (23:07)
[2025-02-22] MEDS: NORVASC 2.5 MG PO (23:07)
[2025-02-22] MEDS: CRESTOR 10 MG PO (23:07)
[2025-02-22] MEDS: AVAPRO 300 MG PO (23:09)
[2025-02-22] MEDS: TYLENOL 650 MG PO (23:13)
[2025-02-23 07:10] VITALS: BP 141/65
[2025-02-23] MEDS: KEFLEX 500 MG PO ×2 (07:12→21:13)
[2025-02-23] MEDS: CELEXA 20 MG PO (07:13)
[2025-02-23] MEDS: THERAGRAN 1 TABLET PO ×2 (07:13→21:13)
[2025-02-23] MEDS: OSCAL CAL 500 500 MG PO ×2 (07:13→21:13)
--- NOTE | 2025-02-23 07:39 | W.PN.HOSP.TC ---
Today's Communication/Plan
-
cont Fleming as per Urology
no need for transfusion today, follow up AM CBC
cont prophylactic abx
possible discharge tomorrow home with VN
Assessment / Plan
Assessment / Plan
Physical Exam
General: No Apparent Distress, appears comfortable at this time
HEENT: NormoCephalic, Anicteric and Moist mucous membranes
Respiratory: Clear
Cardiac: S1/S2 and Regular Rhythm
GI: Soft, Non Tender, Non Distended and Normal Bowel Sounds
: Fleming in placed, brown colored urine in Fleming
Musculoskeletal: No Clubbing, No Cyanosis and No Edema
Skin: Warm, Dry
Neuro: AO x3 conversant coherent
Psych: Calm
84M hx bladder cancer, chronic intermittent hematuria, BPH, pyloric stenosis, hypertension, and hyperlipidemia who presents with a 3 wk hx hematuria, lightheadedness, dizziness, and weakness. Patient reported his hematuria worsened in the last
week, and his told him to come to the emergency room. He has been voiding bright red blood with blood clots. He denied bladder pain or bladder spasms. He denied shortness of breath. No nausea, no vomiting. No chest pain. No black or
bloody stools.
#Bladder cancer not currently on treatment
#Acute on chronic hematuria
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
Cardiology pre-op risk assessment appreciated, low intermediate risk not prohibitive
EKG appreciated NSR RBBB possible inferior infarct age indeterminate, patient chest pain free
Consult urology appreciated, Fleming inserted treated with CBI, underwent TURBT and Clot evacuation 02/21/25 received prophylactic IV Levofloxacin
prophylactic abx continued w/ Keflex
IVF support completed, tolerating diet
cont hold home ASA as per Urology
#Acute blood loss anemia
#Symptomatic anemia
#possible mild ADAM vs CKD III
received total 6U PRBC over the course of hospitalization for goal Hgb 8
Cr relatively consistent 1.5, cont monitoring
#Hypocalcemia
likely side effect multiple transfusions
Vit D wnl
scheduled PO calcium supplementations started
monitor and replete calcium as necessary
#Essential hypertension
Continue amlodipine, irbesartan
#Hyperlipidemia
Continue statin
#Insomnia
#Anxiety
Continue mirtazapine, temazepam, citalopram, melatonin
DVT prophylaxis�SCD
Full code
I spent a total of 45 minutes with the patient or on the floor. More than 50% of this time involved counseling and coordination of care.
Anticipated Discharge: Within 24 hours
Subjective/Interval History
-
Date of Service: February 23, 2025
No acute distress, overall reports feeling well, sitting up comfortably in chair. Off CBI, fleming in place.
Objective Data
-
Labs:
Laboratory Results
02/23/25
06:57
WBC Pending
Hgb Pending
Hct Pending
Plt Count Pending
Sodium Pending
Potassium Pending
Chloride Pending
Carbon Dioxide Pending
BUN Pending
Creatinine Pending
Glucose Pending
Calcium Pending
Vital Signs:
Vital Signs
Temp Pulse Resp BP Pulse Ox
97.3 F 67 18 146/59 96
02/22/25 23:15 02/22/25 23:15 02/22/25 23:15 02/22/25 23:15 02/22/25 23:15
I&O
02/22/25 02/23/25 02/24/25
06:59 06:59 06:59
Intake Total 1780 / 1780 2060 / 2060
Output Total 500 / 500 8300 / 8300
Balance 1280 / 1280 -6240 / -6240
[2025-02-23 07:58] LABS: Hematocrit 28.6 % (39.0-52.0); Hemoglobin 9.1 g/dL (13.0-18.0); Mean Corp Hgb Conc. 31.8 g/dL (33.0-37.0); Mean Corpuscular Hgb 24.7 pg (27.0-31.0); Mean Corpuscular Volume 77.7 fL (80.0-94.0); Platelet Count 127 10^3/uL (130-400); Red Blood Cell Count 3.68 10^6/uL (4.70-6.10); Red Cell Dist. Width 21.5 % (11.5-14.5); White Blood Cell Count 8.7 10^3/uL (4.8-10.8)
[2025-02-23] MEDS: MIRALAX 17 GRAMS PO (08:34)
[2025-02-23 08:47] LABS: Blood Urea Nitrogen 22 mg/dl (9-20); Calcium 8.6 mg/dl (8.4-10.2); Carbon Dioxide 26 mmol/L (22-30); Chloride 112 mmol/L (98-107); Estimated Creatinine Clearance 33 ml/min; Glucose 92 mg/dl (70-99); Magnesium 1.9 mg/dl (1.6-2.3); Phosphorus 3.6 mg/dl (2.5-4.5); Potassium 4.4 mmol/L (3.5-5.1); Sodium 141 mmol/L (135-145); eGFR 49.87
--- NOTE | 2025-02-23 10:42 | W.PN.URO.CBU ---
Today's Communication / Plan
-
STOP CBI BUT RECONNRPECT IF MAJIOR CLOTS ENCOURAGE OOB NO TEDS EBNCOURAGE FLUIDS
Assessment / Plan
-
hematuria anemia of acute blood loss likely bladder cancer s?p turbt await payth but sig slowed down bleeding pt yeny go home with fleming URINE CLEAR TODAY WILL STOP CBI AND ENCOURAGE OOB AND FLUIDS HOME WED IF STABL;E TODAY
Diagnosis
-
Date of Service: February 23, 2025
-
Patient Diagnosis:
Post Op Day:
Patient Diagnosis:anemia of acute blood loss due to bladder cancer
Post Op Day:
Patient Diagnosis:
Post Op Day:
Patient Diagnosis:h.o bladder cancer now 3 weeks gross hematuria painless hgb 4 ct scan renveals multiple tumors
Post Op Day:
Subjective
-
FEELS BETTER
Objective
-
Vital Signs
Temp Pulse Resp BP Pulse Ox
98.4 F 80 6 141/65 100
02/23/25 07:10 02/23/25 07:10 02/23/25 07:10 02/23/25 07:10 02/23/25 07:15
Intake and Output
02/22/25 02/23/25 02/24/25
06:59 06:59 06:59
Intake Total 1780 / 1780 2059 / 2059
Output Total 500 / 500 8300 / 8300 1050 / 1050
Balance 1280 / 1280 -6240 / -6240 -1050 / -1050
Intake:
Oral fluids 480 / 480 1140 / 1140
IV fluids (Total) 800 / 800 320 / 320
IV piggybacks 100 / 100
Blood products 250 / 250 250 / 250
Blood Product Amount Infused ( 250 / 250 250 / 250
mL)
Packed Rbc Leukoreduced Unit 250 / 250
[id number]
Packed Rbc Leukoreduced Unit 250 / 250
[id number]
Output:
True Urine Output from CBI 500 / 500 8300 / 8300 1050 / 1050
Laboratory Results
02/23/25 06:57
02/23/25 06:57
Review of Systems
-
: Difficulty Voiding
Physical Exam
-
General - well developed, well nourished, no acute distress
Chest - clear bilaterally
Abdomen - soft, non-tender, positive bowel sounds, no CVAT, no incisional pain or distention
Genitalia - normal
Rectal - normal
Skin - warm & dry with no rash
Neuro - AOx3, no motor deficits
Extremities - no clubbing, no cyanosis, no edema
Incision - clean, dry
Dressing - clean, dry, intact
Care Review
Data Reviewed
Discussed with: Hospitalist and Nursing
--- NOTE | 2025-02-23 13:03 | CM ---
CM reviewed chart and VN order placed by uro for fleming care on dc
Bedside meeting with pt
He is in agreement with VN on dc
Per nursing, indep throughout room and hallway, no PT/OT concerns
Referral made to [facility] per pt request
IMM verbally reviewed- copy provided
Discharge Disposition- home with [facility] and fleming
--- NOTE | 2025-02-23 14:04 | VNURNOTE ---
Home Health Liaison met with patient and spouse at bedside to discuss [facility] nurse/therapy, visits, schedule and homebound status. both are agreeable and understand that visits at home will be 2-3 x per week to assess and teach medical and fleming
management. Both are aware that [facility] will contact them for start of care in 1-2 days after discharge from .
[facility] referral completed in [facility].
[2025-02-23 15:20] VITALS: BP 141/62
[2025-02-23] MEDS: VITAMIN D3 (cholecalciferol) 125 MCG PO (16:45)
[2025-02-23] MEDS: AVAPRO 300 MG PO (21:13)
[2025-02-23] MEDS: MELATONIN 10 MG PO (21:14)
[2025-02-23] MEDS: CRESTOR 10 MG PO (21:14)
[2025-02-23] MEDS: REMERON 15 MG PO (21:14)
[2025-02-23] MEDS: RESTORIL 7.5 MG PO (21:14)
[2025-02-23] MEDS: NORVASC 2.5 MG PO (21:14)
[2025-02-23 23:17] VITALS: BP 161/70
[2025-02-24] MEDS: TYLENOL 650 MG PO (05:19)
[2025-02-24 07:00] VITALS: BP 154/78
[2025-02-24] MEDS: KEFLEX 500 MG PO (07:06)
[2025-02-24] MEDS: VITAMIN D3 (cholecalciferol) 125 MCG PO (07:06)
[2025-02-24] MEDS: CELEXA 20 MG PO (07:06)
[2025-02-24] MEDS: THERAGRAN 1 TABLET PO (07:06)
[2025-02-24] MEDS: MIRALAX 17 GRAMS PO (07:06)
[2025-02-24] MEDS: OSCAL CAL 500 500 MG PO (07:06)
--- NOTE | 2025-02-24 07:50 | W.PN.HOSP.TC ---
Today's Communication/Plan
-
discharge
Assessment / Plan
Assessment / Plan
Physical Exam
General: No Apparent Distress, appears comfortable at this time
HEENT: NormoCephalic, Anicteric and Moist mucous membranes
Respiratory: Clear
Cardiac: S1/S2 and Regular Rhythm
GI: Soft, Non Tender, Non Distended and Normal Bowel Sounds
: Armendariz in placed, brown colored urine in Armendariz
Musculoskeletal: No Clubbing, No Cyanosis and No Edema
Skin: Warm, Dry
Neuro: AO x3 conversant coherent
Psych: Calm
84M hx bladder cancer, chronic intermittent hematuria, BPH, pyloric stenosis, hypertension, and hyperlipidemia who presents with a 3 wk hx hematuria, lightheadedness, dizziness, and weakness. Patient reported his hematuria worsened in the last
week, and his told him to come to the emergency room. He has been voiding bright red blood with blood clots. He denied bladder pain or bladder spasms. He denied shortness of breath. No nausea, no vomiting. No chest pain. No black or
bloody stools.
#Bladder cancer not currently on treatment
#Acute on chronic hematuria
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
Cardiology pre-op risk assessment appreciated, low intermediate risk not prohibitive
EKG appreciated NSR RBBB possible inferior infarct age indeterminate, patient chest pain free
Consult urology appreciated, Armendariz inserted treated with CBI, underwent TURBT and Clot evacuation 02/21/25 received prophylactic IV Levofloxacin, 02/24/25 patient stable for discharge from urology perspective, patient to go home with Armendariz
prophylactic abx continued w/ Keflex
IVF support completed, tolerating diet
cont hold home ASA as per Urology
#Acute blood loss anemia
#Symptomatic anemia
received total 6U PRBC over the course of hospitalization for goal Hgb 8
H&H stable since transfusions, trending up in 9 range
#possible mild ADAM vs CKD III
Cr relatively consistent 1.5
#Hypocalcemia resolved following repletions
likely side effect multiple transfusions
Vit D wnl
#Essential hypertension
Continue amlodipine, irbesartan
#Hyperlipidemia
Continue statin
#Insomnia
#Anxiety
Continue mirtazapine, temazepam, citalopram, melatonin
DVT prophylaxis�SCD
Full code
Medically stable for discharge home with VN and outpatient follow up recommendations.
Total Time Preparing Discharge __40 minutes including examination of the patient, summary of the hospital stay, instructions for continuing care to all relevant caregivers; and preparation of discharge records, prescriptions, and referral
forms if necessary.
Anticipated Discharge: Today
Subjective/Interval History
-
Date of Service: February 24, 2025
Seen and examined at bedside in no acute distress, overall reports feeling well. Denies new acute issues. Eager to go home.
Objective Data
-
Labs:
Laboratory Results
02/24/25
07:43
WBC Pending
Hgb Pending
Hct Pending
Plt Count Pending
Sodium Pending
Potassium Pending
Chloride Pending
Carbon Dioxide Pending
BUN Pending
Creatinine Pending
Glucose Pending
Calcium Pending
Vital Signs:
Vital Signs
Temp Pulse Resp BP Pulse Ox
98.5 F 78 16 161/70 93
02/23/25 23:17 02/23/25 23:17 02/23/25 23:17 02/23/25 23:17 02/23/25 23:17
I&O
02/23/25 02/24/25 02/25/25
06:59 06:59 06:59
Intake Total 2059 / 2059 2830 / 2830
Output Total 8300 / 8300 5100 / 5100
Balance -6240 / -6240 -0 / -2269
[2025-02-24 08:17] LABS: Hematocrit 29.6 % (39.0-52.0); Hemoglobin 9.4 g/dL (13.0-18.0); Mean Corp Hgb Conc. 31.8 g/dL (33.0-37.0); Mean Corpuscular Hgb 24.7 pg (27.0-31.0); Mean Corpuscular Volume 77.9 fL (80.0-94.0); Platelet Count 134 10^3/uL (130-400); Red Cell Dist. Width 22.2 % (11.5-14.5); White Blood Cell Count 7.4 10^3/uL (4.8-10.8)
[2025-02-24 09:03] LABS: Blood Urea Nitrogen 17 mg/dl (9-20); Calcium 8.9 mg/dl (8.4-10.2); Carbon Dioxide 24 mmol/L (22-30); Chloride 110 mmol/L (98-107); Estimated Creatinine Clearance 36 ml/min; Glucose 99 mg/dl (70-99); Potassium 4.4 mmol/L (3.5-5.1); Sodium 139 mmol/L (135-145); eGFR 54.51
--- NOTE | 2025-02-24 11:22 | W.PN.URO.CBU ---
Today's Communication / Plan
-
teach fleming and leg bag care
Assessment / Plan
-
hematuria anemia of acute blood loss likely bladder cancer s?p turbt await payth but sig slowed down bleeding pt yeny go home with fleming hgb up no clots home today with fleming if cleared by hospitaist
Diagnosis
-
Date of Service: February 24, 2025
-
Patient Diagnosis:
Post Op Day:
Patient Diagnosis:
Post Op Day:
Patient Diagnosis:anemia of acute blood loss due to bladder cancer
Post Op Day:
Patient Diagnosis:
Post Op Day:
Patient Diagnosis:h.o bladder cancer now 3 weeks gross hematuria painless hgb 4 ct scan renveals multiple tumors
Post Op Day:
Subjective
-
cbi off feels well no clots some hemtura
Objective
-
Vital Signs
Temp Pulse Resp BP Pulse Ox
98.5 F 78 16 161/70 100
02/23/25 23:17 02/23/25 23:17 02/23/25 23:17 02/23/25 23:17 02/24/25 07:10
Intake and Output
02/23/25 02/24/25 02/25/25
06:59 06:59 06:59
Intake Total 2059 / 2059 2830 / 2830
Output Total 8300 / 8300 5100 / 5100
Balance -6240 / -6240 -2270 / -2270
Intake:
Oral fluids 1140 / 1140 2830 / 2830
IV fluids (Total) 320 / 320
IV piggybacks 100 / 100
Blood products 250 / 250
Blood Product Amount Infused ( 250 / 250
mL)
Packed Rbc Leukoreduced Unit 250 / 250
[id number]
Output:
Urine, Fleming 1450 / 1450
Urine, Voided 2600 / 2600
True Urine Output from CBI 8300 / 8300 1050 / 1050
Laboratory Results
02/24/25 07:43
02/24/25 07:43
Review of Systems
-
: Dark Urine
Physical Exam
-
General - well developed, well nourished, no acute distress
Chest - clear bilaterally
Abdomen - soft, non-tender, positive bowel sounds, no CVAT, no incisional pain or distention
Genitalia - normal
Rectal - normal
Skin - warm & dry with no rash
Neuro - AOx3, no motor deficits
Extremities - no clubbing, no cyanosis, no edema
Incision - clean, dry
Dressing - clean, dry, intact
Care Review
Data Reviewed
Discussed with: Hospitalist and Nursing
--- NOTE | 2025-02-24 13:15 | CM ---
Chart reviewed and patient is for discharge to home today, plan is to home with [facility].
Plan; Home with [facility].
--- NOTE | 2025-02-24 15:39 | W.DCSUMMARY ---
Discharge Summary
Discharge Data
Date of Admission: 02/19/25
Date of Discharge: 02/24/25
-
Pending Results: No
Discharge Plan
-
Patient Disposition: Home with Home Care
Discharge Diagnosis/Procedures: Hematuria
Acute Blood Loss Anemia
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
Chronic Kidney Disease Stage III
Hypertension
Condition: Fair
Diet: Low Cholesterol
Activity: As tolerated
Driving Restrictions: As prior to admission
Bathing Restrictions: None
Blood Work: Repeat CBC and BMP with primary care provider in 1 week of discharge.
Activity Restrictions/Additional Instructions:
Follow up with primary care provider in 1 week of discharge and Urology in 1-2 weeks of discharge. Call Urology office for pathology results in 1 week of discharge.
Keflex has been prescribed for 5 more days for infection prophylaxis.
Please take medications as prescribed/recommended and follow up with primary care provider, urology, and/or other healthcare provider involved in your care for further adjustments to your medication regimen as necessary.
Referrals:
Antonio Burk MD [Active, Urology] - in one to two weeks
Referral Note: expect blood in urine for weeks wit and without fleming will remove fleming after march [address] christianson er [phone] to schedule appt to discuss pathology
Samuel Purdy MD [Family Provider, Family Practice]
Additional Discharge Medication Instructions: no aspirin 2 weeks
Prescriptions:
New
cephalexin 500 mg Capsule
500 mg PO BID 5 Days Qty: 10 0RF
Continued
mirtazapine 15 MG tablet
15 mg PO HS
3-In-1 Carb Control
2 cap PO BID
irbesartan 300 MG tablet
300 mg PO HS
rosuvastatin 10 MG tablet
10 mg PO HS
krill [id number]-epa 1 EACH capsule
1 cap PO QPM
therapeutic multivitamin Tablet
1 tab PO BID
amlodipine 2.5 mg Tablet
2.5 mg PO HS
acetaminophen [Tylenol Extra Strength] 500 mg Tablet
1,000 mg PO DAILYPRN PRN (Reason: mild pain)
temazepam 7.5 mg Capsule
7.5 mg PO HS
citalopram 20 mg Tablet
20 mg PO DAILY
acetylcysteine [NAC] 600 mg Capsule
600 mg PO DAILY
cholecalciferol (vitamin D3) 125 mcg (5,000 unit) Tablet
125 mcg PO QPM
melatonin 10 mg Tablet
10 mg PO HS
turmeric 400 mg Capsule
400 mg PO DAILY
Glucosamine Chondroitin
1 cap PO QPM
taurine
1 cap PO DAILY
Held
aspirin 81 MG tablet,delayed release (DR/EC)
81 mg PO HS
Hold Instructions: Hold for 2 weeks following discharge. Discuss with Urology before resuming if Hematuria remains present.
Discharge Orders:
Discharge Patient (As Directed); Ordered 02/24/25
Ordered By: Arsenio Jeronimo
Discharge Date and Time
Print Language: YORUBA
[2025-02-24 15:50] VITALS: BP 137/60
== END 2025-02-24 16:43 | disposition home health service (06) | DRG 669 ==
LOC: 4 WEST ACU 19:32
PROVIDERS: ADMITTING PHYSICIAN Family Medicine; ATTENDING PHYSICIAN Internal Medicine; CONSULT PHYSICIAN Internal Medicine Cardiovascular Disease; CONSULT PHYSICIAN Specialist; EMERGENCY PHYSICIAN Student in an Organized Health Care Education/Training Program; FAMILY PHYSICIAN Family Medicine
PROC: 30233N1 Transfusion of Nonautologous Red Blood Cells into Peripheral Vein, Percutaneous Approach (ICD-10-PCS; 2025-02-19)
PROC: 0TBB8ZZ Excision of Bladder, Via Natural or Artificial Opening Endoscopic (ICD-10-PCS; 2025-02-21)
PROC: 0TCB8ZZ Extirpation of Matter from Bladder, Via Natural or Artificial Opening Endoscopic (ICD-10-PCS; 2025-02-21)
DX: C67.9 Malignant neoplasm of bladder, unspecified (principal); D62 Acute posthemorrhagic anemia; R31.0 Gross hematuria; E78.00 Pure hypercholesterolemia, unspecified; N18.30 Chronic kidney disease, stage 3 unspecified; I12.9 Hypertensive chronic kidney disease with stage 1 through stage 4 chronic kidney disease, or unspecified chronic kidney disease; N40.0 Benign prostatic hyperplasia without lower urinary tract symptoms; I45.10 Unspecified right bundle-branch block; N32.89 Other specified disorders of bladder; G47.00 Insomnia, unspecified; F41.9 Anxiety disorder, unspecified; E83.51 Hypocalcemia; Z88.0 Allergy status to penicillin; Z87.442 Personal history of urinary calculi; Z83.79 Family history of other diseases of the digestive system; Z87.891 Personal history of nicotine dependence
CPT/HCPCS: 88307; 74177; 80048; 80053; 82306; 82962; 83735; 84100; 85014; 85018; 85025; 85027; 86850; 86900; 86901; 86920; 93005; 96374; 96375; 99285; P9016; Q9967